=== PATIENT | male | born 1980 | race Caucasian/White ===

== ENCOUNTER 2018-07-09 15:58 | Emergency (ER) | payer OTHER ==
[~2018-07-09] VITALS: Ht 167.6 cm; Wt 86.2 kg
--- NOTE | ~2018-07-09 | EKG ---
[place], [place] ELECTROCARDIOGRAM REPORT NAME: SHERITA BARRAGAN JR UNIT #: [id number] ROOM: DOCTOR: EPIPHANY DRAFT REPORT BIRTHDATE: [birth year] [facility] Test Date: 2018-07-09 Test Time: 16:20:01 Pat Name: SHERITA BARRAGAN Department: Room: Gender: Table Tender Sludge: KULWANT : 1980 Requested By: OLE ZAFAR Order Number: [id number] Reading MD: Rosario Hua MD Measurements Intervals [place] Rate: 94 P: 52 [place]: 130 QRS: 11 QRSD: 82 T: 26 QT: 341 QTc: 427 Interpretive Statements Sinus rhythm Electronically Signed On 07-10-2018 7:53:21 PST by Rosario Hua MD CM:EKGRPT:ELECTROCARDIOGRAM REPORT [id number] OLE MARCELINO DRAFT REPORT OLE ZAFAR MD
[~2018-07-09 15:58] MED LIST: AMOXICILLIN500 M2 PO; ANAPROX DS550 MG PO; ATIVAN1 MG PO; BACTRIM DS 8001 TA1 PO; KEFLEX500 MG PO; NKHM; VOLTAREN50 M1 PO
[2018-07-09 16:17] LABS: BASO % 0.3 % (0.0-1.0); EOS # 0.2 10*3/uL (0.0-0.4); EOS % 2.3 % (1.0-4.0); HEMATOCRIT 48.2 % (42.0-52.0); HEMOGLOBIN 16.6 g/dl (14.0-18.0); LYMPH # 2.6 10*3/uL (1.3-4.4); LYMPH % 28.1 % (27.0-41.0); MEAN CELL VOLUME 86.1 fl (80.0-94.0); MEAN CORPUSCULAR HGB 29.6 pg (27.0-31.0); MEAN CORPUSCULAR HGB CONC 34.4 g/dl (33.0-37.0); MEAN PLATELET VOLUME 10.2 fl (9.6-12.3); MONO # 0.6 10*3/uL (0.1-1.0); MONO % 6.7 % (3.0-9.0); NEUT # 5.8 10*3/uL (2.3-7.9); NEUT % 62.4 % (47.0-73.0); PLATELET COUNT AUTOMATED 298 10*3/uL (130-400); RED CELL DISTRI WIDTH 12.3 % (0-14.5); WHITE BLOOD COUNT 9.3 10*3/uL (4.8-10.8)
[2018-07-09 16:26] LABS: ACT PARTIAL THROMBO TIME 21.8 SECONDS (20.8-31.5); INTERNATIONAL NORM RATIO 0.9 (2.0-3.5)
[2018-07-09 16:45] LABS: ALBUMIN 4.2 gm/dl (3.1-4.5); ALKALINE PHOSPHATASE 86 U/L (45-117); BUN 15 mg/dl (7-24); CHLORIDE 106 mmol/L (98-107); CREATININE 1.22 mg/dL (0.70-1.30); SGOT/AST 21 IU/L (3-35); SGPT/ALT 32 U/L (12-78); SODIUM 139 mmol/L (136-145); TOTAL PROTEIN 7.6 gm/dL (6.4-8.2)
[2018-07-09 16:46] LABS: TROPONIN I < 0.015 ng/ml (<0.045)
[2018-07-09 17:19] VITALS: BP 124/78
== END 2018-07-09 17:48 | disposition home or self-care (01) ==
LOC: ED 15:58
PROVIDERS: Emergency Medicine
DX: F43.9 Reaction to severe stress, unspecified (principal); F41.9 Anxiety disorder, unspecified; R07.89 Other chest pain; F12.90 Cannabis use, unspecified, uncomplicated

== ENCOUNTER 2018-08-01 18:28 | Emergency (ER) | payer MEDICAID ==
[~2018-08-01] VITALS: Ht 167.6 cm; Wt 81.6 kg
[2018-08-01 18:30] VITALS: BP 127/77
[2018-08-01] MEDS ORDERED: LORAZEPAM0.5 MG PO (18:50)
== END 2018-08-01 19:04 | disposition home or self-care (01) ==
LOC: ED 18:28
DX: F41.9 Anxiety disorder, unspecified (principal); R42 Dizziness and giddiness; Z91.040 Latex allergy status; Z79.899 Other long term (current) drug therapy

== ENCOUNTER 2018-10-10 13:41 | Emergency (ER) | payer OTHER ==
[~2018-10-10] VITALS: Ht 167.6 cm; Wt 81.6 kg
--- NOTE | ~2018-10-10 | EKG ---
[place], [place] ELECTROCARDIOGRAM REPORT NAME: SHERITA BARRAGAN JR UNIT #: [id number] ROOM: DOCTOR: EPIPHANY DRAFT REPORT BIRTHDATE: [birth year] [facility] Test Date: 2018-10-10 Test Time: 14:46:35 Pat Name: SHERITA BARRAGAN Department: Room: Gender: Chipper Operator: Palma Wise : 1980 Requested By: GRACIELA DEL TORO Order Number: [id number] Reading MD: Earnest Bowie MD Measurements Intervals [place] Rate: 84 P: 54 [place]: 144 QRS: -3 QRSD: 81 T: 16 QT: 342 QTc: 405 Interpretive Statements Sinus rhythm Baseline wander in lead(s) II,V6 Compared to ECG 07/09/2018 16:20:01 No significant changes Electronically Signed On 10-12-2018 15:47:31 PDT by Earnest Bowie MD CM:EKGRPT:ELECTROCARDIOGRAM REPORT [id number] GRACIELA DEL TORO EPIPHANY DRAFT REPORT GRACIELA DEL TORO
[~2018-10-10 13:41] MED LIST changes: +LORAZEPAM0.5 MG PO
[2018-10-10 13:43] VITALS: BP 140/77
[2018-10-10] MEDS ORDERED: VISTARIL25 M2 PO (15:55)
== END 2018-10-10 15:58 | disposition home or self-care (01) ==
LOC: ED 13:41
DX: F41.9 Anxiety disorder, unspecified (principal); Z79.899 Other long term (current) drug therapy; Z91.040 Latex allergy status

== ENCOUNTER 2019-03-25 13:42 | Emergency (ER) | payer OTHER ==
[~2019-03-25] VITALS: Wt 86.2 kg
[~2019-03-25 13:42] MED LIST changes: +VISTARIL25 M2 PO
[2019-03-25 13:43] VITALS: BP 150/80
[2019-03-25] MEDS ORDERED: VISTARIL25 M2 PO (14:40)
== END 2019-03-25 15:03 | disposition home or self-care (01) ==
LOC: ED 13:42
DX: F40.01 Agoraphobia with panic disorder (principal); R42 Dizziness and giddiness; R11.0 Nausea; Z79.899 Other long term (current) drug therapy

== ENCOUNTER 2019-08-02 11:01 | Emergency (ER) | payer SELFPAY ==
[~2019-08-02] VITALS: Ht 167.6 cm; Wt 86.2 kg
[2019-08-02 11:09] VITALS: BP 143/80
[2019-08-02] MEDS ORDERED: Bactroban Oint22 GM T (14:01)
== END 2019-08-02 13:51 | disposition home or self-care (01) ==
LOC: ED 11:01
DX: F41.9 Anxiety disorder, unspecified (principal); M54.6 Pain in thoracic spine; Z79.899 Other long term (current) drug therapy

== ENCOUNTER 2019-09-13 15:17 | Emergency (ER) | payer SELFPAY ==
[~2019-09-13] VITALS: Ht 167.6 cm; Wt 88.5 kg
[~2019-09-13 15:17] MED LIST changes: +Bactroban Oint22 GM T
[2019-09-13 15:29] VITALS: BP 131/87
[2019-09-13 16:43] LABS: BASO % 0.1 % (0.0-1.0); EOS # 0.1 10*3/uL (0.0-0.4); EOS % 1.3 % (1.0-4.0); HEMATOCRIT 52.9 % (42.0-52.0); HEMOGLOBIN 17.7 g/dl (14.0-18.0); LYMPH # 1.3 10*3/uL (1.3-4.4); LYMPH % 15.7 % (27.0-41.0); MEAN CORPUSCULAR HGB 28.5 pg (27.0-31.0); MEAN CORPUSCULAR HGB CONC 33.5 g/dl (33.0-37.0); MONO # 0.6 10*3/uL (0.1-1.0); MONO % 6.9 % (3.0-9.0); NEUT % 75.7 % (47.0-73.0); PLATELET COUNT AUTOMATED 269 10*3/uL (130-400); RED BLOOD COUNT 6.22 10*6/uL (4.50-5.90)
[2019-09-13 16:55] LABS: ALBUMIN 4.4 gm/dl (3.1-4.5); ALKALINE PHOSPHATASE 102 U/L (45-117); BUN 11 mg/dl (7-24); CHLORIDE 106 mmol/L (98-107); CREATININE 1.24 mg/dL (0.70-1.30); SGOT/AST 26 IU/L (3-35); SGPT/ALT 63 U/L (12-78); SODIUM 139 mmol/L (136-145); TOTAL PROTEIN 8.6 gm/dL (6.4-8.2)
[2019-09-13 17:25] LABS: CLARITY CLEAR (CLEAR); COLOR STRAW (YELLOW)
[2019-09-13 17:26] LABS: BILIRUBIN NEGATIVE (NEGATIVE); BLOOD NEGATIVE (NEGATIVE); EPITHELIAL CELLS 0-2; GLUCOSE NEGATIVE (NEGATIVE); KETONE NEGATIVE (NEGATIVE); LEUKO ESTERASE NEGATIVE (NEGATIVE); NITRITE NEGATIVE (NEGATIVE); PH 8.5 (5.0-9.0); SPECIFIC GRAVITY 1.005 (1.005-1.030); UROBILINOGEN 0.2 E.U./dl (0.2-1.0)
[2019-09-13] MEDS ORDERED: CLINDAMYCIN HC300 MG PO (17:45)
== END 2019-09-13 17:53 | disposition home or self-care (01) ==
LOC: ED 15:17
PROVIDERS: Nurse Practitioner Family
DX: R59.0 Localized enlarged lymph nodes (principal)

== ENCOUNTER 2020-01-01 13:26 | Emergency (ER) | payer SELFPAY ==
[~2020-01-01] VITALS: Ht 167.6 cm; Wt 86.2 kg
[~2020-01-01 13:26] MED LIST changes: +CLINDAMYCIN HC300 MG PO
[2020-01-01 13:48] LABS: BASO % 0.3 % (0.0-1.0); EOS # 0.2 10*3/uL (0.0-0.4); EOS % 2.8 % (1.0-4.0); HEMATOCRIT 48.2 % (42.0-52.0); LYMPH # 2.5 10*3/uL (1.3-4.4); LYMPH % 33.2 % (27.0-41.0); MEAN CELL VOLUME 86.5 fl (80.0-94.0); MEAN CORPUSCULAR HGB 28.9 pg (27.0-31.0); MEAN CORPUSCULAR HGB CONC 33.4 g/dl (33.0-37.0); MEAN PLATELET VOLUME 9.7 fl (9.6-12.3); MONO # 0.6 10*3/uL (0.1-1.0); MONO % 7.7 % (3.0-9.0); NEUT # 4.1 10*3/uL (2.3-7.9); NEUT % 55.9 % (47.0-73.0); PLATELET COUNT AUTOMATED 261 10*3/uL (130-400); RED BLOOD COUNT 5.57 10*6/uL (4.50-5.90); RED CELL DISTRI WIDTH 12.3 % (0-14.5); WHITE BLOOD COUNT 7.4 10*3/uL (4.8-10.8)
[2020-01-01 13:57] LABS: ACT PARTIAL THROMBO TIME 25.7 SECONDS (20.0-32.1); INTERNATIONAL NORM RATIO 0.9 (2.0-3.5)
[2020-01-01 14:05] LABS: ALBUMIN 3.9 gm/dl (3.1-4.5); ALKALINE PHOSPHATASE 87 U/L (45-117); BUN 15 mg/dl (7-24); CHLORIDE 105 mmol/L (98-107); CREATININE 1.31 mg/dL (0.70-1.30); POTASSIUM 3.6 mmol/L (3.5-5.1); SGOT/AST 20 IU/L (3-35); SGPT/ALT 62 U/L (12-78); SODIUM 137 mmol/L (136-145)
[2020-01-01 14:06] LABS: LIPASE 72 U/L (73-393)
[2020-01-01 14:15] LABS: TROPONIN I < 0.015 ng/ml (<0.045)
[2020-01-01 16:28] VITALS: BP 125/68
== END 2020-01-01 17:06 | disposition home or self-care (01) ==
LOC: ED 13:26
PROVIDERS: Emergency Medicine
DX: R07.9 Chest pain, unspecified (principal); F41.9 Anxiety disorder, unspecified

== ENCOUNTER 2020-10-20 22:06 | Emergency (ER) | payer SELFPAY ==
[~2020-10-20] VITALS: Ht 170.1 cm; Wt 86.2 kg
[2020-10-20 23:15] LABS: BASO % 0.4 % (0.0-1.0); EOS # 0.3 10*3/uL (0.0-0.4); EOS % 3.1 % (1.0-4.0); HEMATOCRIT 46.5 % (42.0-52.0); LYMPH # 2.4 10*3/uL (1.3-4.4); LYMPH % 28.8 % (27.0-41.0); MEAN CORPUSCULAR HGB CONC 33.8 g/dl (33.0-37.0); MONO # 0.7 10*3/uL (0.1-1.0); NEUT # 4.9 10*3/uL (2.3-7.9); NEUT % 59.6 % (47.0-73.0); PLATELET COUNT AUTOMATED 247 10*3/uL (130-400); RED BLOOD COUNT 5.41 10*6/uL (4.50-5.90); RED CELL DISTRI WIDTH 12.2 % (0-14.5); WHITE BLOOD COUNT 8.2 10*3/uL (4.8-10.8)
[2020-10-20 23:27] VITALS: BP 128/80
[2020-10-20 23:34] LABS: ALBUMIN 3.7 gm/dl (3.1-4.5); ALKALINE PHOSPHATASE 82 U/L (45-117); BUN 15 mg/dl (7-24); CHLORIDE 107 mmol/L (98-107); CREATININE 1.36 mg/dL (0.70-1.30); POTASSIUM 3.6 mmol/L (3.5-5.1); SGOT/AST 20 IU/L (3-35); SGPT/ALT 56 U/L (12-78); SODIUM 139 mmol/L (136-145); TOTAL PROTEIN 7.4 gm/dL (6.4-8.2)
[2020-10-20 23:38] LABS: TROPONIN I < 0.015 ng/ml (<0.045)
== END 2020-10-21 03:31 | disposition left against medical advice (07) ==
LOC: ED 22:06
PROVIDERS: Emergency Medicine
DX: R07.89 Other chest pain (principal); F41.9 Anxiety disorder, unspecified

== ENCOUNTER 2021-03-23 15:39 | Emergency (ER) | payer SELFPAY | END 2021-03-23 17:03 | disposition left against medical advice (07) | LOC: ED 15:39 | DX: Z76.0 Encounter for issue of repeat prescription (principal); Z53.21 Procedure and treatment not carried out due to patient leaving prior to being seen by health care provider ==

== ENCOUNTER 2021-07-09 14:15 | Emergency (ER) | payer SELFPAY ==
[~2021-07-09] VITALS: Wt 86.2 kg
[2021-07-09 14:30] VITALS: BP 98/64
[2021-07-09 15:14] LABS: EOS % 0.3 % (1.0-4.0); HEMATOCRIT 45.6 % (42.0-52.0); LYMPH # 0.8 10*3/uL (1.3-4.4); LYMPH % 20.3 % (27.0-41.0); MEAN CELL VOLUME 84.6 fl (80.0-94.0); MEAN CORPUSCULAR HGB 28.2 pg (27.0-31.0); MEAN CORPUSCULAR HGB CONC 33.3 g/dl (33.0-37.0); MEAN PLATELET VOLUME 9.7 fl (9.6-12.3); MONO # 0.4 10*3/uL (0.1-1.0); NEUT # 2.7 10*3/uL (2.3-7.9); NEUT % 68.1 % (47.0-73.0); PLATELET COUNT AUTOMATED 143 10*3/uL (130-400); RED BLOOD COUNT 5.39 10*6/uL (4.50-5.90); RED CELL DISTRI WIDTH 12.2 % (0-14.5)
[2021-07-09 15:28] LABS: ALBUMIN 2.9 gm/dl (3.1-4.5); ALKALINE PHOSPHATASE 71 U/L (45-117); BUN 10 mg/dl (7-24); CHLORIDE 100 mmol/L (98-107); LIPASE 79 U/L (73-393); POTASSIUM 4.9 mmol/L (3.5-5.1); SGOT/AST 56 IU/L (3-35); SGPT/ALT 44 U/L (12-78); SODIUM 133 mmol/L (136-145); TOTAL PROTEIN 7.1 gm/dL (6.4-8.2)
== END 2021-07-09 19:40 | disposition home or self-care (01) ==
LOC: ED 14:15
PROVIDERS: Physician Assistant
DX: U07.1 COVID-19 (principal); F12.90 Cannabis use, unspecified, uncomplicated

== ENCOUNTER 2021-07-10 02:51 | Emergency (ER) | payer SELFPAY ==
[~2021-07-10] VITALS: Ht 165.1 cm; Wt 86.2 kg
[2021-07-10 03:01] VITALS: BP 114/54
== END 2021-07-10 06:06 | disposition home or self-care (01) ==
LOC: ED 02:51
DX: U07.1 COVID-19 (principal); F12.90 Cannabis use, unspecified, uncomplicated

== ENCOUNTER 2022-09-16 14:12 | Emergency (ER) | payer SELFPAY ==
[~2022-09-16] VITALS: Ht 170.1 cm; Wt 81.6 kg
[2022-09-16 14:16] VITALS: BP 142/80
[2022-09-16] MEDS ORDERED: BENZONATATE100 M1 PO (16:13)
== END 2022-09-16 16:13 | disposition home or self-care (01) ==
LOC: ED 14:12
DX: B34.9 Viral infection, unspecified (principal)

== ENCOUNTER 2023-05-24 22:21 | Emergency (ER) | payer SELFPAY ==
[~2023-05-24] VITALS: Ht 167.6 cm; Wt 86.2 kg
[~2023-05-24 22:21] MED LIST changes: +BENZONATATE100 M1 PO
[2023-05-24] MEDS ORDERED: VENLAFAXINE HYD75 M3 PO (22:32)
[2023-05-24 23:55] LABS: BASO % 0.3 % (0.0-1.0); EOS # 0.1 10*3/uL (0.0-0.4); EOS % 1.8 % (1.0-4.0); HEMATOCRIT 44.8 % (42.0-52.0); LYMPH # 1.6 10*3/uL (1.3-4.4); LYMPH % 19.8 % (27.0-41.0); MEAN CELL VOLUME 84.8 fl (80.0-94.0); MEAN CORPUSCULAR HGB 28.8 pg (27.0-31.0); MEAN CORPUSCULAR HGB CONC 33.9 g/dl (33.0-37.0); MEAN PLATELET VOLUME 9.6 fl (9.6-12.3); MONO # 0.7 10*3/uL (0.1-1.0); MONO % 8.7 % (3.0-9.0); NEUT # 5.5 10*3/uL (2.3-7.9); NEUT % 69.1 % (47.0-73.0); PLATELET COUNT AUTOMATED 224 10*3/uL (130-400); RED BLOOD COUNT 5.28 10*6/uL (4.50-5.90); RED CELL DISTRI WIDTH 12.4 % (0-14.5)
[2023-05-25 00:11] LABS: ACT PARTIAL THROMBO TIME 26.4 SECONDS (20.0-32.1)
[2023-05-25 00:20] LABS: ALKALINE PHOSPHATASE 76 U/L (46-116); BUN 11 mg/dl (9-23); CHLORIDE 103 mmol/L (98-107); LIPASE 30 U/L (12-53); POTASSIUM 3.5 mmol/L (3.4-5.1); SGPT/ALT 80 U/L (5-49)
[2023-05-25 00:46] VITALS: BP 131/79
== END 2023-05-25 02:45 | disposition home or self-care (01) ==
LOC: ED 22:21
PROVIDERS: Internal Medicine
DX: F41.9 Anxiety disorder, unspecified (principal); R42 Dizziness and giddiness; F12.90 Cannabis use, unspecified, uncomplicated; F17.290 Nicotine dependence, other tobacco product, uncomplicated

== ENCOUNTER 2024-02-19 18:37 | Emergency (ER) | payer SELFPAY ==
[~2024-02-19] VITALS: Ht 167.6 cm; Wt 90.7 kg
[~2024-02-19 18:37] MED LIST changes: +VENLAFAXINE HYD75 M3 PO
[2024-02-19 18:49] VITALS: BP 132/71
[2024-02-19] MEDS ORDERED: Tdap Vaccine 0.5 ML SYR (Adult Vaccine) IM ONE (19:05)
[2024-02-19] MEDS ORDERED: LORazepam 0.5 MG TAB PO ONE (19:05)
[2024-02-19] MEDS ORDERED: NAPROSYN500 MG PO (20:10)
[2024-02-19] MEDS ORDERED: NAPROXEN 250 MG TAB PO ONE (20:15)
== END 2024-02-19 20:17 | disposition home or self-care (01) ==
LOC: ED 18:37
DX: S91.312A Laceration without foreign body, left foot, initial encounter (principal); S80.02XA Contusion of left knee, initial encounter; F41.9 Anxiety disorder, unspecified; F12.90 Cannabis use, unspecified, uncomplicated; W01.198A Fall on same level from slipping, tripping and stumbling with subsequent striking against other object, initial encounter; Y93.89 Activity, other specified; Y92.89 Other specified places as the place of occurrence of the external cause; Y99.8 Other external cause status